=== PATIENT | female | born 1950 | race Caucasian/White ===

== ENCOUNTER 2017-09-08 09:32 | Day surgery (SDC) | payer MEDICARE, OTHER ==
[2017-09-07 15:12] LABS: HEMATOCRIT 38.5 % (36.0-48.0); HEMOGLOBIN 12.5 g/dL (12-16); MCH 28.4 pg (26.0-34.0); MCHC 32.5 g/dL (31.0-37.0); MCV 87.5 fL (80.0-100.0); MEAN PLATELET VOLUME 9.5 fL (7.4-10.4); RBC 4.4 10x6/uL (4.00-5.40); RDW 13.4 % (11.5-14.5)
[~2017-09-08] VITALS: Ht 162.6 cm; Wt 72.6 kg
--- NOTE | ~2017-09-08 | OP ---
PATIENT NAME: MYA BENJAMIN MEDICAL RECORD: [id number] :50 LOCATION:D[facility] ADMISSION DATE: SURGEON: TIMMY MELENDEZ DATE OF OPERATION: 09/08/2017 SURGEON: Timmy Melendez DPM PREOPERATIVE DIAGNOSES: 1. Hallux rigidus, right foot. 2. Osteoarthritis, right first metatarsophalangeal joint. POSTOPERATIVE DIAGNOSES: 1. Hallux rigidus, right foot. 2. Osteoarthritis, right first metatarsophalangeal joint. PROCEDURE: Bob-implant arthroplasty, right first metatarsophalangeal joint. ANESTHESIA: General. HEMOSTASIS: Pneumatic ankle tourniquet inflated to 250 mmHg for 39 minutes. ESTIMATED BLOOD LOSS: Minimal. MATERIALS: One Optiant first MPJ implant. INJECTABLES: 20 cc of 0.5% bupivacaine plain. The patient has longstanding history of pain associated with the right first metatarsophalangeal joint. We have reviewed with her the proposed procedure, risks, and benefits were discussed. Complications were reviewed. All questions were answered. She was appropriately consented for the above-mentioned procedure. DESCRIPTION OF PROCEDURE: The patient was brought to the operating room and placed on the operating table in a supine position. A timeout was called with Dr. Melendez, who identified the patient, the surgical site, and the surgeries to be performed. Once appropriate anesthesia was obtained, the foot was prepped and draped in the usual aseptic manner. The pneumatic ankle tourniquet was inflated to 250 mmHg on the well-padded right ankle. Attention was directed to the first metatarsophalangeal joint area where a 6 cm linear incision was made just medial to the extensor hallucis longus tendon. This incision was carried deep to soft tissue with care being taken to retract all vital neurovascular structures. All bleeders were cauterized along the way. The periosteum was then reflected from the first metatarsophalangeal joint, thus exposing the joint. The joint surfaces were inspected and found to be severely eroded of cartilage. The base of the proximal phalanx was essentially cartilage free and there were several large defects on the first metatarsal head as well. All hypertrophied bone associated with the first metatarsal head was resected with a sagittal saw. Next, utilizing manufacture's recommended technique, one size 0 implant was placed at the base of the first metatarsal. The first metatarsophalangeal joint was placed through a range of motion and the range of motion was noted to be increased from the preoperative condition. The OPERATIVE REPORT [id number] SOURAVMYA CABRAL surgical site was then irrigated with copious amounts of normal sterile saline via bulb syringe. The periosteum was reapproximated and coapted using 3-0 Vicryl. The subcutaneous was reapproximated and coapted using 4-0 Vicryl. The skin was reapproximated and coapted using 4-0 nylon. A dressing consisting of Xeroform, 4 x 4's, Kerlix, and Leonard bandage was applied to the right foot. The patient tolerated the procedure and anesthesia well. She left the operating room with vital signs stable and capillary refill time intact. The patient will be discharged home with instructions to ice and elevate the right foot. She was provided with prescriptions for [place] 5/325, Phenergan 25 mg, and ibuprofen 800 mg. She was provided with a postop shoe to help offload the surgical site. She has my cell phone number for any after hour difficulties. We will follow up with her next week in the office and there were no complications with this procedure. TRANSINT:[id number] Voice Confirmation ID: [id number] DOCUMENT ID: [id number] TIMYM MELENDEZ at 1735 CC: [id number] DICTATION DATE: 09/08/17 1452 MANAGER OF GLOBAL: 09/08/17 1525 [facility] 09/08/17 [place] [id number]
[~2017-09-08 09:32] MED LIST: FLUTICASONE PRO16 GM NASAL; LIPITOR40 MG PO; PROTONIX40 MG PO; SINGULAIR10 MG PO; ZOLOFT100 MG PO
[2017-09-08 10:43] VITALS: BP 143/83; Ht 162.6 cm; Wt 72.6 kg
== END 2017-09-08 15:10 | disposition home or self-care (01) ==
LOC: D.OPS 09:32 → D.PAN 11:30 → D.OPS 11:30 → D.PAN 11:45 → D.OPS 15:10
PROVIDERS: Anesthesiology
DX: M19.071 Primary osteoarthritis, right ankle and foot (principal); M20.21 Hallux rigidus, right foot; Z01.812 Encounter for preprocedural laboratory examination